=== PATIENT | male | born 1975 | race Caucasian/White ===

== ENCOUNTER 2017-03-06 15:31 | Emergency (ER) | payer SELFPAY ==
[~2017-03-06 15:31] MED LIST: BENZONATATE PO; FLEXERIL PO; LORTAB 5/500 TA1 TA2 PO; NAPROSYN500 MG PO; PEN-VEE K PO; ROBITUSSIN A-C S5 ML PO; VIBRAMYCIN100 M1 PO
== END 2017-03-06 17:06 | disposition home or self-care (01) ==
LOC: CED 15:31 → CFTX 15:31
DX: S51.831A Puncture wound without foreign body of right forearm, initial encounter (principal); F17.210 Nicotine dependence, cigarettes, uncomplicated; W27.8XXA Contact with other nonpowered hand tool, initial encounter; Y92.69 Other specified industrial and construction area as the place of occurrence of the external cause
CPT/HCPCS: 99283